=== PATIENT | female | born 1960 | race Caucasian/White ===

== ENCOUNTER 2017-07-25 09:47 | Emergency (ER) | payer OTHER ==
[2017-07-25] MEDS ORDERED: Sodium Chloride 0.9% 10 ML Syringe FLUSH PRN (10:12)
[2017-07-25] MEDS ORDERED: Sodium Chloride 0.9% 1,000 ML IV SCH (10:15)
--- NOTE | 2017-07-25 10:21 | EDM.PDOC ---
ED HPI GENERAL MEDICAL PROBLEM - General Chief Complaint: Cardiovascular Problem Stated Complaint: fast pulse Time Seen by Provider: 07/25/17 09:50 Source of Information: Reports: Patient, Family History Limitations: Reports: No Limitations - History of Present Illness INITIAL COMMENTS - FREE TEXT/NARRATIVE: Patient arrives with complaints of dizziness, fast heart rate, feeling exhausted , sore throat, body aches. She states she started having a sore throat and feeling exhausted last night and did fall asleep early. She describes waking up this AM feeling exhausted wanting to go back to bed. She did awaken, and while making breakfast she began feeling her heart beat rapidly, having some dizziness, shortness of breath, body aches, sore throat, having pressure in her head, behind her eyes, some numbness in her jaw. States she felt her throat was burning but it did not feel like heart burn. She also describes lower back pain that started on Sunday that she said isn't really bothering her currently. Along with her eye pressure she does describe a frontal headache pressure type. No visual changes. She does state she has worn a holter before for similar tachycardia. States she was told she has a sinus arrhythmia. Denies a- fib, svt, a-flutter. She denies prior [place], CVA, cancer, states she has been watching her blood sugar as she is pre-diabetic. Reports a low carb diet change a few weeks ago. Primary provider is Gege Orozco at [facility]. Denies smoking, drug use, rare alcohol use. Blood pressure before leaving home was 147 /110, here it is 141/90. Onset: Today, Sudden Onset Date: 07/25/17 Onset Time: 08:30 Location: Reports: Face, Neck, Chest Quality: Reports: Ache, Pressure Severity: Moderate Associated Symptoms: Reports: Headaches, Shortness of Breath, Weakness - Related Data Allergies Allergy/AdvReac Type Severity Reaction Status Date / Time codeine Allergy Nausea and Verified 10/25/15 10:17 Vomiting Home Meds: Home Meds Escitalopram Oxalate [Lexapro] 20 mg PO DAILY 10/19/15 [History] Hydrochlorothiazide [Hydrochlorothiazide] 1 tab PO DAILY 10/19/15 [History] Ibuprofen 400 mg PO Q6HR PRN 10/19/15 [History] Metoprolol Succinate [Toprol XL] 100 mg PO DAILY 10/19/15 [History] Multivitamin with Minerals [Multiple Vitamin] 1 tab PO DAILY 10/19/15 [History] [place]-3 Fatty Acids [Central-3] 2 cap PO DAILY 10/19/15 [History] SUMAtriptan Succinate [Imitrex] 100 mg PO ASDIRECTED PRN 10/19/15 [History] Scopolamine [Transderm-Scop] 1 patch TRDERM ASDIRECTED 10/19/15 [History] Diclofenac Sodium [Voltaren] 75 mg DAILY 07/25/17 [History] Past Medical History HEENT History: Reports: Impaired Vision Cardiovascular History: Reports: Hypertension, Other (See Below) Other Cardiovascular History: PAC's Gastrointestinal History: Reports: GERD 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: , Other (See Below) Other OB/BYN History: Cystocele Musculoskeletal History: Reports: Arthritis, Other (See Below) Other Musculoskeletal History: Chronic pain syndrome Neurological History: Reports: Migraines Psychiatric History: Reports: Anxiety, Depression - Past Surgical History GI Surgical History: Reports: Cholecystectomy, Other (See Below) Female Surgical History: Reports: Cervical Cryotherapy, Hysterectomy, Other ( See Below) Musculoskeletal Surgical History: Reports: Arthroscopic Knee, Carpal Tunnel Social & Family History - Tobacco Use Smoking Status *Q: Former Smoker Used Tobacco, but Quit: Yes Second Hand Smoke Exposure: No - Recreational Drug Use Recreational Drug Use: No Drug Use in Last 12 Months: No ED ROS GENERAL - Review of Systems Review Of Systems: ROS reveals no pertinent complaints other than HPI. ED EXAM, GENERAL - Physical Exam Exam: See Below Exam Limited By: No Limitations General Appearance: Alert, WD/WN, Mild Distress Eye Exam: Bilateral Eye: EOMI, PERRL Ears: Normal TMs Nose: Normal Inspection Throat/Mouth: Normal Inspection, Normal Lips, Normal Teeth, Normal Oropharynx, No Airway Compromise Head: Atraumatic, Normocephalic Neck: Normal Inspection, Supple, Non-Tender, Full Range of Motion. No: Lymphadenopathy (L), Lymphadenopathy (R) Respiratory/Chest: No Respiratory Distress, Lungs Clear, Normal Breath Sounds, No Accessory Muscle Use, Chest Non-Tender Cardiovascular: Normal Peripheral Pulses, Regular Rate, Rhythm, No Edema GI/Abdominal: Normal Bowel Sounds, Soft, Non-Tender Back Exam: Normal Inspection Extremities: Normal Inspection, Normal Range of Motion, Non-Tender, Normal Capillary Refill Neurological: Alert, Oriented, CN II-XII Intact, Normal Cognition, Normal Gait, Normal Reflexes Psychiatric: Normal Affect, Normal Mood Skin Exam: Warm, Dry, Intact, Normal Color, No Rash Lymphatic: No Adenopathy Course - Vital Signs Last Recorded V/S: Last Vital Signs Temp 36.6 C 07/25/17 09:47 Pulse 89 07/25/17 09:47 Resp 20 07/25/17 09:47 BP 141/91 H 07/25/17 09:47 Pulse Ox 97 07/25/17 09:47 - Orders/Labs/Meds Orders: Active Orders 24 hr Category Date Time Status EKG Documentation Completion [RC] ROUTINE Care 07/25/17 10:12 Ordered Head wo Cont [CT] Stat Exams 07/25/17 10:13 Taken CULTURE STREP A CONFIRMATION [] Stat Lab 07/25/17 10:23 Results STREP SCRN A RAPID W CULT CONF [] Stat Lab 07/25/17 10:23 Results Saline Lock Insert [OM.PC] Routine Oth 07/25/17 10:12 Ordered Labs: Laboratory Tests 07/25/17 07/25/17 07/25/17 Range/Units 10:23 10:29 10:29 WBC 7.5 (4.0-10.0) x10^3/uL RBC 4.28 (4.00-5.50) x10^6/uL Hgb 14.2 (12.0-16.0) g/dL Hct 41.4 (33.0-47.0) % MCV 96.7 H (78.0-93.0) fL MCH 33.2 H (26.0-32.0) pg MCHC 34.3 (32.0-36.0) g/dL RDW Coeff of Patience 12.3 (10.0-15.0) % Plt Count 210 (130-400) x10^3/uL Neut % (Auto) 69.5 (50.0-80.0) % Lymph % (Auto) 19.7 L (25.0-50.0) % [place] % (Auto) 7.6 (2.0-11.0) % Eos % (Auto) 2.8 (0.0-4.0) % Baso % (Auto) 0.4 (0.2-1.2) % Sodium 143 (136-145) mmol/L Potassium 3.2 L (3.5-5.1) mmol/L Chloride 104 (98-107) mmol/L Carbon Dioxide 32 (21-32) mmol/L BUN 14 (7-18) mg/dL Creatinine 0.9 (0.55-1.02) mg/dL Est Cr Clr Drug Dosing 63.55 mL/min Estimated GFR (MDRD) > 60 Glucose 98 (74-106) mg/dL Calcium 9.3 (8.5-10.1) mg/dL Corrected Calcium 9.86 (8.5-10.1) mg/dL Magnesium 1.8 (1.8-2.4) mg/dL Total Bilirubin 0.6 (0.2-1.0) mg/dL AST 32 (15-37) U/L ALT 55 (14-59) U/L Alkaline Phosphatase 88 (46-116) U/L Creatine Kinase 85 (26-192) U/L Creatine Kinase Index 1.4 (0.0-4.0) % CK-MB (CK-2) 1.2 (0.0-3.6) ng/mL POC Troponin I (0.00-0.08) ng/mL C-Reactive Protein 0.8 (<=0.9) mg/dL NT-Pro-B Natriuret Pep 91 (<=125) pg/mL Total Protein 6.7 (6.4-8.2) g/dL Albumin 3.3 L (3.4-5.0) g/dL Globulin 3.4 Albumin/Globulin Ratio 0.97 TSH, Ultra Sensitive 0.967 (0.358-3.74) uIU/mL Urine Color Yellow (YELLOW) Urine Appearance Slightly cloudy H (CLEAR) Urine pH 6.0 (5.0-8.0) Ur Specific [place] 1.015 Urine Protein Negative (NEGATIVE) mg/dL Urine Glucose (UA) Negative (NEGATIVE) mg/dL Urine Ketones Negative (NEGATIVE) mg/dL Urine Occult Blood Trace-intact H (NEGATIVE) Urine Nitrite Negative (NEGATIVE) Urine Bilirubin Negative (NEGATIVE) Urine Urobilinogen 0.2 (0.2) EU/dL Ur Leukocyte Esterase Large H (NEGATIVE) Urine RBC 5-10 H (NOT SEEN) /HPF Urine WBC 30-40 H (NOT SEEN) /HPF Ur Squamous Epith Cells Many H (NEGATIVE) /HPF Urine Bacteria Moderate H (NEGATIVE) /HPF Urine Mucus Few H (NEGATIVE) /LPF 07/25/17 Range/Units 10:36 WBC (4.0-10.0) x10^3/uL RBC (4.00-5.50) x10^6/uL Hgb (12.0-16.0) g/dL Hct (33.0-47.0) % MCV (78.0-93.0) fL MCH (26.0-32.0) pg MCHC (32.0-36.0) g/dL RDW Coeff of Patience (10.0-15.0) % Plt Count (130-400) x10^3/uL Neut % (Auto) (50.0-80.0) % Lymph % (Auto) (25.0-50.0) % [place] % (Auto) (2.0-11.0) % Eos % (Auto) (0.0-4.0) % Baso % (Auto) (0.2-1.2) % Sodium (136-145) mmol/L Potassium (3.5-5.1) mmol/L Chloride (98-107) mmol/L Carbon Dioxide (21-32) mmol/L BUN (7-18) mg/dL Creatinine (0.55-1.02) mg/dL Est Cr Clr Drug Dosing mL/min Estimated GFR (MDRD) Glucose (74-106) mg/dL Calcium (8.5-10.1) mg/dL Corrected Calcium (8.5-10.1) mg/dL Magnesium (1.8-2.4) mg/dL Total Bilirubin (0.2-1.0) mg/dL AST (15-37) U/L ALT (14-59) U/L Alkaline Phosphatase (46-116) U/L Creatine Kinase (26-192) U/L Creatine Kinase Index (0.0-4.0) % CK-MB (CK-2) (0.0-3.6) ng/mL POC Troponin I 0.00 (0.00-0.08) ng/mL C-Reactive Protein (<=0.9) mg/dL NT-Pro-B Natriuret Pep (<=125) pg/mL Total Protein (6.4-8.2) g/dL Albumin (3.4-5.0) g/dL Globulin Albumin/Globulin Ratio TSH, Ultra Sensitive (0.358-3.74) uIU/mL Urine Color (YELLOW) Urine Appearance (CLEAR) Urine pH (5.0-8.0) Ur Specific [place] Urine Protein (NEGATIVE) mg/dL Urine Glucose (UA) (NEGATIVE) mg/dL Urine Ketones (NEGATIVE) mg/dL Urine Occult Blood (NEGATIVE) Urine Nitrite (NEGATIVE) Urine Bilirubin (NEGATIVE) Urine Urobilinogen (0.2) EU/dL Ur Leukocyte Esterase (NEGATIVE) Urine RBC (NOT SEEN) /HPF Urine WBC (NOT SEEN) /HPF Ur Squamous Epith Cells (NEGATIVE) /HPF Urine Bacteria (NEGATIVE) /HPF Urine Mucus (NEGATIVE) /LPF Meds: Medications Discontinued Medications Generic Name Dose Route Start Last Admin Trade Name Freq PRN Reason Stop Dose Admin Sodium Chloride 1,000 mls @ 999 mls/hr 07/25/17 10:15 07/25/17 10:15 Normal Saline IV 999 mls/hr ASDIRECTED JOSÉ Administration Potassium Chloride 40 meq 07/25/17 11:14 07/25/17 11:40 Klor-Con M20 PO 07/25/17 11:15 40 meq ONETIME ONE Administration Sodium Chloride 10 ml 07/25/17 10:12 Saline Flush FLUSH ASDIRECTED PRN Keep Vein Open - Re-Assessments/Exams Free Text/Narrative Re-Assessment/Exam: 07/25/17 11:[address], rapid strep, and influenza all negative. Troponin, ekg negative. Potassium is slightly low at 3.2, urine does show a likely pyelonephritis with blood, leukocytes, mucous, wbc's observed. 07/25/17 11:29 Departure - Departure Time of Disposition: 12:10 Disposition: Home, Self-Care 01 Condition: Good Clinical Impression: Pyelonephritis, Hypokalemia Instructions: Pyelonephritis, Adult, [id number], Hypokalemia Referrals: Gege Orozco DO [Primary Care Provider] - Forms: ED Department Discharge Additional Instructions: Follow up with your primary provider as symptoms warrant. Stay well hydrated. Take the full course of antibiotics even if feeling better. This will make sure to eliminate the infection and reduce antibiotic resistance. Cipro 500 mg PO BID x 7 days Your potassium was slightly low today. I would also visit with your primary doctor as to possible reasons for this. Please contact us if you have any questions or concerns. Thank you for choosing [facility]. - Problem List & Annotations (1) Hypokalemia SNOMED Code(s): 18503565 Code(s): E87.6 - HYPOKALEMIA Status: Acute Priority: Low (2) Pyelonephritis SNOMED Code(s): 60544734 Code(s): N12 - TUBULO-INTERSTITIAL NEPHRITIS, NOT SPCF ACUTE OR CHRONIC Status: Acute Priority: Medium - Problem List Review Problem List Initiated/Reviewed/Updated: Yes - My Orders Last 24 Hours: My Active Orders 07/25/17 10:12 EKG Documentation Completion [RC] ROUTINE Saline Lock Insert [OM.PC] Routine 07/25/17 10:13 Head wo Cont [CT] Stat 07/25/17 10:23 CULTURE STREP A CONFIRMATION [RM] Stat STREP SCRN A RAPID W CULT CONF [RM] Stat - Assessment/Plan Last 24 Hours: My Active Orders 07/25/17 10:12 EKG Documentation Completion [RC] ROUTINE Saline Lock Insert [OM.PC] Routine 07/25/17 10:13 Head wo Cont [CT] Stat 07/25/17 10:23 CULTURE STREP A CONFIRMATION [RM] Stat STREP SCRN A RAPID W CULT CONF [RM] Stat Assessment:: Pyelonephritis Hypokalemia Plan: Follow up with your primary provider as symptoms warrant. Stay well hydrated. Take the full course of antibiotics even if feeling better. This will make sure to eliminate the infection and reduce antibiotic resistance. Your potassium was slightly low today. I would also visit with your primary doctor as to possible reasons for this. Please contact us if you have any questions or concerns. Thank you for choosing [facility] [employer].
[2017-07-25 10:53] VITALS: BP 141/91
[2017-07-25 11:08] LABS: CHLORIDE,CL 104 mmol/L (98-107); SODIUM,NA 143 mmol/L (136-145)
[2017-07-25] MEDS ORDERED: Potassium Chloride 20 MEQ Tab.ER PO ONE (11:14)
== END 2017-07-25 12:10 | disposition home or self-care (01) ==
LOC: VM.ED 09:47
DX: N12 Tubulo-interstitial nephritis, not specified as acute or chronic (principal); E87.6 Hypokalemia; I10 Essential (primary) hypertension; F41.9 Anxiety disorder, unspecified; F32.9 Major depressive disorder, single episode, unspecified; G43.909 Migraine, unspecified, not intractable, without status migrainosus; Z87.891 Personal history of nicotine dependence; Z88.5 Allergy status to narcotic agent; Z90.49 Acquired absence of other specified parts of digestive tract; Z79.899 Other long term (current) drug therapy
CPT/HCPCS: 36415; 70450; 80053; 81001; 82550; 82553; 83735; 83880; 84443; 84484; 85025; 86140; 87081; 87804; 87880; 93005; 96360; 96361; 99285; A9270; J7030

== ENCOUNTER 2018-06-01 12:46 | Emergency (ER) | payer OTHER ==
[2018-06-01 13:06] VITALS: BP 140/90
[2018-06-01] MEDS ORDERED: Sodium Chloride 0.9% 10 ML Syringe FLUSH PRN (13:31)
[2018-06-01] MEDS: Sodium Chloride 0.9% 1,000 ML IV ONE (13:47)
[2018-06-01] MEDS: Ondansetron 4 MG/2 ML SDV IVPUSH ONE (13:48)
[2018-06-01 13:58] LABS: CHLORIDE,CL 103 mmol/L (98-107); SODIUM,NA 141 mmol/L (136-145)
[2018-06-01 14:04] LABS: ANION GAP 11.2 mmol/L (10-20)
--- NOTE | 2018-06-01 14:40 | EDM.PDOC ---
ED HPI GENERAL MEDICAL PROBLEM - General Chief Complaint: General Stated Complaint: DIZZINESS Time Seen by Provider: 06/01/18 12:47 Source of Information: Reports: Patient, Family, RN, RN Notes Reviewed History Limitations: Reports: No Limitations - History of Present Illness INITIAL COMMENTS - FREE TEXT/NARRATIVE: Patient presents to the ED at [facility] with complains of nausea, headache , back pain, generally not feeling well. Symptoms started a couple days ago. No recent back injury or trauma. Back pain is chronic. Has not taken any medications at home. No recent exposures. No close family members or contacts with similar symptoms. Onset: Unknown/Unsure Lower Back Pain Score (Numeric/FACES): 5 - Related Data Allergies Allergy/AdvReac Type Severity Reaction Status Date / Time codeine Allergy Nausea and Verified 06/01/18 13:08 Vomiting Home Meds: Home Meds Escitalopram Oxalate [Lexapro] 20 mg PO DAILY 10/19/15 [History] Hydrochlorothiazide 1 tab PO DAILY 10/19/15 [History] Ibuprofen 400 mg PO Q6HR PRN 10/19/15 [History] Metoprolol Succinate [Toprol XL] 100 mg PO DAILY 10/19/15 [History] Multivitamin with Minerals [Multiple Vitamin] 1 tab PO DAILY 10/19/15 [History] [place]-3 Fatty Acids [[place]-3] 2 cap PO DAILY 10/19/15 [History] SUMAtriptan Succinate [Imitrex] 100 mg PO ASDIRECTED PRN 10/19/15 [History] Scopolamine [Transderm-Scop] 1 patch TRDERM ASDIRECTED 10/19/15 [History] Diclofenac Sodium [Voltaren] 75 mg DAILY 07/25/17 [History] Estradiol [Estring] 1 each VG Q3M 06/01/18 [History] Nitrofurantoin Macrocrystal [Macrodantin] 100 mg PO BID 5 Days #10 capsule 06/01 [Rx] Past Medical History HEENT History: Reports: Impaired Vision Cardiovascular History: Reports: Hypertension, Other (See Below) Other Cardiovascular History: PAC's Gastrointestinal History: Reports: GERD 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: , 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 REPAIRER History: Cystocele Musculoskeletal History: Reports: Arthritis, Other (See Below) Other Musculoskeletal History: Chronic pain syndrome Neurological History: Reports: Migraines Psychiatric History: Reports: Anxiety, Depression - Past Surgical History GI Surgical History: Reports: Cholecystectomy, Other (See Below) Female Surgical History: Reports: Cervical Cryotherapy, Hysterectomy, Other ( See Below) Musculoskeletal Surgical History: Reports: Arthroscopic Knee, Carpal Tunnel Dermatological Surgical History: Reports: None Social & Family History - Tobacco Use Smoking Status *Q: Unknown Ever Smoked ED ROS GENERAL - Review of Systems Review Of Systems: See Below Constitutional: Reports: Chills, Weakness. Denies: Fever HEENT: Reports: No Symptoms Respiratory: Denies: Shortness of Breath, Cough Cardiovascular: Denies: Chest Pain, Palpitations GI/Abdominal: Reports: Abdominal Pain, Nausea. Denies: Diarrhea, Vomiting Musculoskeletal: Reports: Back Pain (lower bilateral) Skin: Reports: No Symptoms Neurological: Reports: Headache ED EXAM, GENERAL - Physical Exam Exam: See Below Exam Limited By: No Limitations General Appearance: Alert, No Apparent Distress Eye Exam: Bilateral Eye: EOMI, Normal Inspection, PERRL Ears: Normal External Exam, Normal Canal, Normal TMs Ear Exam: Bilateral Ear: TM normal Throat/Mouth: Normal Inspection, Normal Oropharynx Neck: Supple Respiratory/Chest: No Respiratory Distress, Lungs Clear, Normal Breath Sounds Cardiovascular: Normal Peripheral Pulses, Regular Rate, Rhythm Peripheral Pulses: 2+: Radial (L), Radial (R) GI/Abdominal: Soft, Non-Tender, Abnormal Bowel Sounds (hypoactive) Back Exam: Normal Inspection, Paraspinal Tenderness Skin Exam: Warm, Dry, Intact, Normal Color Course - Vital Signs Last Recorded V/S: Last Vital Signs Temp 37.1 C 06/01/18 12:55 Pulse 70 06/01/18 12:55 Resp 16 06/01/18 12:55 BP 140/90 06/01/18 12:55 Pulse Ox 97 06/01/18 12:55 - Orders/Labs/Meds Orders: Active Orders 24 hr Category Date Time Status Abdomen Pelvis wo Cont [CT] Stat Exams 06/01/18 13:32 Taken UA W/MICROSCOPIC [URIN] Stat Lab 06/01/18 13:50 Ordered Sodium Chloride 0.9% [Saline Flush] Med 06/01/18 13:31 Active 10 ml FLUSH ASDIRECTED PRN Peripheral IV Insertion Adult [OM.PC] Routine Oth 06/01/18 13:31 Ordered Medication Orders Sodium Chloride (Saline Flush) 10 ml FLUSH ASDIRECTED PRN PRN Reason: Keep Vein Open Labs: Laboratory Tests 06/01/18 06/01/18 06/01/18 Range/Units 13:33 13:33 13:33 WBC 9.3 (4.0-10.0) x10^3/uL RBC 4.69 (4.00-5.50) x10^6/uL Hgb 15.9 D (12.0-16.0) g/dL Hct 45.3 (33.0-47.0) % MCV 96.6 H (78.0-93.0) fL MCH 33.9 H (26.0-32.0) pg MCHC 35.1 (32.0-36.0) g/dL RDW Coeff of Patience 12.9 (10.0-15.0) % Plt Count 264 (130-400) x10^3/uL Neut % (Auto) 67.6 (50.0-80.0) % Lymph % (Auto) 19.8 L (25.0-50.0) % [place] % (Auto) 9.1 (2.0-11.0) % Eos % (Auto) 3.2 (0.0-4.0) % Baso % (Auto) 0.3 (0.2-1.2) % Sodium 141 (136-145) mmol/L Potassium 3.2 L (3.5-5.1) mmol/L Chloride 103 (98-107) mmol/L Carbon Dioxide 30 (21-32) mmol/L Anion Gap 11.2 (10-20) mmol/L BUN 8 (7-18) mg/dL Creatinine 1.0 (0.55-1.02) mg/dL Est Cr Clr Drug Dosing TNP Estimated GFR (MDRD) 57 Glucose 97 (74-106) mg/dL Lactic Acid 1.1 (0.4-2.0) mmol/L Calcium 9.4 (8.5-10.1) mg/dL Corrected Calcium 9.64 (8.5-10.1) mg/dL Total Bilirubin 0.6 (0.2-1.0) mg/dL AST 31 (15-37) U/L ALT 53 (14-59) U/L Alkaline Phosphatase 101 (46-116) U/L C-Reactive Protein 1.3 H (<=0.9) mg/dL Total Protein 7.6 (6.4-8.2) g/dL Albumin 3.7 (3.4-5.0) g/dL Globulin 3.9 Albumin/Globulin Ratio 0.95 Urine Color (YELLOW) Urine Appearance (CLEAR) Urine pH (5.0-8.0) Ur Specific [place] Urine Protein (NEGATIVE) mg/dL Urine Glucose (UA) (NEGATIVE) mg/dL Urine Ketones (NEGATIVE) mg/dL Urine Occult Blood (NEGATIVE) Urine Nitrite (NEGATIVE) Urine Bilirubin (NEGATIVE) Urine Urobilinogen (0.2) EU/dL Ur Leukocyte Esterase (NEGATIVE) Urine RBC (NOT SEEN) /HPF Urine WBC (NOT SEEN) /HPF Ur Epithelial Cells Urine Bacteria (NEGATIVE) /HPF Urine Mucus (NEGATIVE) /LPF 06/01/18 Range/Units 13:50 WBC (4.0-10.0) x10^3/uL RBC (4.00-5.50) x10^6/uL Hgb (12.0-16.0) g/dL Hct (33.0-47.0) % MCV (78.0-93.0) fL MCH (26.0-32.0) pg MCHC (32.0-36.0) g/dL RDW Coeff of Patience (10.0-15.0) % Plt Count (130-400) x10^3/uL Neut % (Auto) (50.0-80.0) % Lymph % (Auto) (25.0-50.0) % [place] % (Auto) (2.0-11.0) % Eos % (Auto) (0.0-4.0) % Baso % (Auto) (0.2-1.2) % Sodium (136-145) mmol/L Potassium (3.5-5.1) mmol/L Chloride (98-107) mmol/L Carbon Dioxide (21-32) mmol/L Anion Gap (10-20) mmol/L BUN (7-18) mg/dL Creatinine (0.55-1.02) mg/dL Est Cr Clr Drug Dosing Estimated GFR (MDRD) Glucose (74-106) mg/dL Lactic Acid (0.4-2.0) mmol/L Calcium (8.5-10.1) mg/dL Corrected Calcium (8.5-10.1) mg/dL Total Bilirubin (0.2-1.0) mg/dL AST (15-37) U/L ALT (14-59) U/L Alkaline Phosphatase (46-116) U/L C-Reactive Protein (<=0.9) mg/dL Total Protein (6.4-8.2) g/dL Albumin (3.4-5.0) g/dL Globulin Albumin/Globulin Ratio Urine Color Yellow (YELLOW) Urine Appearance Slightly cloudy H (CLEAR) Urine pH 6.0 (5.0-8.0) Ur Specific [place] 1.015 Urine Protein Negative (NEGATIVE) mg/dL Urine Glucose (UA) Negative (NEGATIVE) mg/dL Urine Ketones Negative (NEGATIVE) mg/dL Urine Occult Blood Negative (NEGATIVE) Urine Nitrite Negative (NEGATIVE) Urine Bilirubin Negative (NEGATIVE) Urine Urobilinogen 0.2 (0.2) EU/dL Ur Leukocyte Esterase Trace H (NEGATIVE) Urine RBC 0-5 (NOT SEEN) /HPF Urine WBC 5-10 H (NOT SEEN) /HPF Ur Epithelial Cells Many Urine Bacteria Few H (NEGATIVE) /HPF Urine Mucus Few H (NEGATIVE) /LPF Meds: Medications Generic Name Dose Route Start Last Admin Trade Name Freq PRN Reason Stop Dose Admin Sodium Chloride 10 ml 06/01/18 13:31 Saline Flush FLUSH ASDIRECTED PRN Keep Vein Open Discontinued Medications Generic Name Dose Route Start Last Admin Trade Name Freq PRN Reason Stop Dose Admin Sodium Chloride 1,000 mls @ 999 mls/hr 06/01/18 13:32 06/01/18 13:47 Normal Saline IV 06/01/18 14:32 999 mls/hr ONETIME ONE Administration Ondansetron HCl 4 mg 06/01/18 13:32 06/01/18 13:48 Zofran IVPUSH 06/01/18 13:33 4 mg ONETIME ONE Administration Departure - Departure Time of Disposition: 15:05 Disposition: Home, Self-Care 01 Condition: Good Clinical Impression: UTI (urinary tract infection) Qualifiers: Urinary tract infection type: acute cystitis Hematuria presence: with hematuria Qualified Code(s): N30.01 - Acute cystitis with hematuria - Discharge Information *PRESCRIPTION DRUG MONITORING PROGRAM REVIEWED*: Not Applicable *COPY OF PRESCRIPTION DRUG MONITORING REPORT IN PATIENT RANJITH: Not Applicable Prescriptions: Nitrofurantoin Macrocrystal [Macrodantin] 100 mg PO BID 5 Days #10 capsule Instructions: Urinary Tract Infection, Adult Referrals: Gege Orozco DO [Primary Care Provider] - Forms: ED Department Discharge Additional Instructions: - Stay well hydrated and rest - Take medications for the full coarse, even if you are feeling better - May alternate Tylenol/Advil as needed for pain - LOTS of water - Use nausea medication as needed - See your Primary in clinic as symptoms warrant - Problem List Review Problem List Initiated/Reviewed/Updated: Yes - My Orders Last 24 Hours: My Active Orders 06/01/18 13:31 Sodium Chloride 0.9% [Saline Flush] 10 ml FLUSH ASDIRECTED PRN Peripheral IV Insertion Adult [OM.PC] Routine 06/01/18 13:32 Abdomen Pelvis wo Cont [CT] Stat 06/01/18 13:50 UA W/MICROSCOPIC [URIN] Stat - Assessment/Plan Last 24 Hours: My Active Orders 06/01/18 13:31 Sodium Chloride 0.9% [Saline Flush] 10 ml FLUSH ASDIRECTED PRN Peripheral IV Insertion Adult [OM.PC] Routine 06/01/18 13:32 Abdomen Pelvis wo Cont [CT] Stat 06/01/18 13:50 UA W/MICROSCOPIC [URIN] Stat Assessment:: UTI Back Pain Plan: Labs and CT scan thoroughly discussed with patient and family. All questions answered. Patient will be started on abx therapy for UTI. Patient agrees with POC.
[2018-06-01] MEDS: Take Home: Nitrofurantoin Monohydrate/Macrocrystalline 100 MG, 2 Cap Pack PO ONE (15:19)
== END 2018-06-01 15:27 | disposition home or self-care (01) ==
LOC: VM.ED 12:46
DX: N30.01 Acute cystitis with hematuria (principal); I10 Essential (primary) hypertension; F41.9 Anxiety disorder, unspecified; F32.9 Major depressive disorder, single episode, unspecified; Z88.5 Allergy status to narcotic agent; Z90.710 Acquired absence of both cervix and uterus; Z90.49 Acquired absence of other specified parts of digestive tract
CPT/HCPCS: 36415; 74176; 80053; 81001; 83605; 85025; 86140; 96361; 96374; 99284; A9270-GY; J2405; J7030

== ENCOUNTER 2024-06-12 21:41 | Emergency (ER) | payer OTHER ==
[2024-06-12] MEDS ORDERED: Sodium Chloride 0.9% 10 ML Syringe FLUSH PRN (21:48)
[2024-06-12] MEDS: HYDROmorphone 0.5 MG/0.5 ML Syringe IVPUSH ONE (22:00)
[2024-06-12] MEDS: Acetaminophen 500 MG Tab PO ONE (22:00)
[2024-06-12 22:06] LABS: BASOPHILS PERCENT AUTO 0.1 % (0.2-1.2); HEMATOCRIT 40.8 % (33.0-47.0); HEMOGLOBIN 14.3 g/dL (12.0-16.0); IMMATURE GRAN ABSOLUTE AUTO 0.02 x10^3/uL (0.00-0.07); LYMPHOCYTES ABSOLUTE AUTO 0.7 x10^3/uL (1.0-4.8); LYMPHOCYTES PERCENT AUTO 6.4 % (25.0-50.0); MEAN CORPUSCULAR VOLUME 94.2 fL (78.0-93.0); MONOCYTES ABSOLUTE AUTO 0.9 x10^3/uL (0.0-0.8); MONOCYTES PERCENT AUTO 8.9 % (2.0-11.0); NEUTROPHILS ABSOLUTE AUTO 8.9 x10^3/uL (1.8-7.7); NEUTROPHILS PERCENT AUTO 84.4 % (50.0-80.0); PLATELET COUNT,PLT 177 x10^3/uL (130-400); RED BLOOD CELL COUNT 4.33 x10^6/uL (4.00-5.50); WHITE BLOOD CELL COUNT,WBC 10.5 x10^3/uL (4.0-10.0)
[2024-06-12 22:26] LABS: LACTIC ACID 1.4 mmol/L (0.4-2.0); PROTHROMBIN TIME 10.5 SEC (8.9-11.5); PTT,PARTIAL THROMBOPLSTIN TIME 25.6 SEC (21.9-33.8)
[2024-06-12] MEDS: Ondansetron 4 MG/2 ML SDV IVPUSH ONE (22:29)
[2024-06-12 22:42] LABS: A/G RATIO 1.27; ALANINE AMINOTRANSFERASE,ALT 34 U/L (14-59); ALBUMIN 3.8 g/dL (3.4-5.0); ALKALINE PHOSPHATASE 82 U/L (46-116); ASPARTATE AMNIOTRANSFERASE,AST 25 U/L (15-37); BILIRUBIN TOTAL 0.6 mg/dL (0.2-1.0); BLOOD UREA NITROGEN,BUN 11 mg/dL (7-18); C-REACTIVE PROTEIN 3.83 mg/dL (<=0.50); CALCIUM 8.7 mg/dL (8.5-10.1); CARBON DIOXIDE,CO2 29 mmol/L (21-32); CHLORIDE,CL 102 mmol/L (98-107); CREATININE 1.1 mg/dL (0.55-1.02); GLUCOSE RANDOM 159 mg/dL (70-99); MAGNESIUM 1.5 mg/dL (1.8-2.4); POTASSIUM,K 3.4 mmol/L (3.5-5.1); PROTEIN TOTAL,TP 6.8 g/dL (6.4-8.2); SODIUM,NA 141 mmol/L (136-145)
[2024-06-12 22:45] LABS: ANION GAP 13.4 mmol/L (5-15); ESTIMATED GFR 57 mL/min (>=60)
[2024-06-12 22:46] LABS: CORONAVIRUS COVID-19 NAA NEGATIVE (NEGATIVE); INFLUENZA A NAA NEGATIVE (NEGATIVE); INFLUENZA B NAA NEGATIVE (NEGATIVE); RESPIRATORY SYNCYTIAL VIR NAA NEGATIVE (NEGATIVE)
[2024-06-12] MEDS: Iopamidol 755 Mg/ML 100 ML Bottle IVPUSH ONE (23:19)
[2024-06-12] MEDS: cefTRIAXone 1 GM Vial IVPUSH ONE (23:25)
[2024-06-13] MEDS: HYDROmorphone 0.5 MG/0.5 ML Syringe IVPUSH ONE (00:45)
[2024-06-13 01:19] VITALS: PULSE 84
[2024-06-13 01:20] VITALS: BP 125/75
== END 2024-06-13 01:50 | disposition short-term general hospital (02) ==
LOC: VM.ED 21:41
DX: R50.9 Fever, unspecified (principal); I10 Essential (primary) hypertension; Z88.8 Allergy status to other drugs, medicaments and biological substances; Z79.899 Other long term (current) drug therapy; Z90.49 Acquired absence of other specified parts of digestive tract; Z90.710 Acquired absence of both cervix and uterus
CPT/HCPCS: 0241U; 36415; 71045; 71275; 80053; 83605; 83735; 83880; 84484; 85025; 85379; 85610; 85730; 86140; 87040; 93005; 93010; 96374; 96375; 96376; 99284; 99285-25; A9270-GY; J0696; J1170; J2405; Q9967

== ENCOUNTER 2024-06-21 06:20 | Emergency (ER) | payer OTHER ==
[2024-06-21] MEDS ORDERED: Sodium Chloride 0.9% 10 ML Syringe FLUSH PRN (07:00)
[2024-06-21] MEDS: Sodium Chloride 0.9% 1,000 ML IV ONE (07:10)
[2024-06-21 07:26] LABS: HEMATOCRIT 38.9 % (33.0-47.0); HEMOGLOBIN 13.4 g/dL (12.0-16.0); MEAN CORPUSCULAR HEMOGLOBIN 33.1 pg (26.0-32.0); MEAN CORPUSCULAR HGB CONC 34.4 g/dL (32.0-36.0); PLATELET COUNT,PLT 317 x10^3/uL (130-400); RED BLOOD CELL COUNT 4.05 x10^6/uL (4.00-5.50)
[2024-06-21 07:28] LABS: WHITE BLOOD CELL COUNT,WBC 22.6 x10^3/uL (4.0-10.0)
[2024-06-21 07:35] LABS: BAND PERCENT MAN 1 % (0-6); LYMPHOCYTES ABSOLUTE MAN 0.7 x10^3/uL (1.0-4.8); LYMPHOCYTES PERCENT MAN 3 % (25-50); MONOCYTES ABSOLUTE MAN 0.7 x10^3/uL (0.0-0.8); MONOCYTES PERCENT MAN 3 % (2-11); NEUTROPHILS ABSOLUTE MAN 21.2 x10^3/uL (1.8-7.7); PLATELET COUNT ESTIMATE ADEQUATE; SEG NEUTROPHILS PERCENT MAN 93 % (50-80)
[2024-06-21 07:47] LABS: A/G RATIO 0.66; ALANINE AMINOTRANSFERASE,ALT 29 U/L (14-59); ALBUMIN 2.7 g/dL (3.4-5.0); ALKALINE PHOSPHATASE 111 U/L (46-116); ASPARTATE AMNIOTRANSFERASE,AST 19 U/L (15-37); BILIRUBIN TOTAL 0.6 mg/dL (0.2-1.0); BLOOD UREA NITROGEN,BUN 17 mg/dL (7-18); CALCIUM 9.2 mg/dL (8.5-10.1); CARBON DIOXIDE,CO2 29 mmol/L (21-32); CHLORIDE,CL 103 mmol/L (98-107); CREATININE 0.7 mg/dL (0.55-1.02); EST CRCL DRUG DOSING (CG) 74.98 mL/min; GLUCOSE RANDOM 159 mg/dL (70-99); LIPASE 26 U/L (19-71); POTASSIUM,K 3.5 mmol/L (3.5-5.1); PRO B-TYPE NATRIUR PEPT,BNPPRO 890 pg/mL (<=125); PROTEIN TOTAL,TP 6.8 g/dL (6.4-8.2); SODIUM,NA 140 mmol/L (136-145)
[2024-06-21 07:50] LABS: ANION GAP 11.5 mmol/L (5-15); ESTIMATED GFR 98 mL/min (>=60)
[2024-06-21] MEDS: Iopamidol 612 MG/ML 100 ML Bottle IVPUSH ONE (07:57)
[2024-06-21] MEDS: Morphine 2 MG/ML SYRINGE IVPUSH ONE (08:15)
[2024-06-21] MEDS: Ketorolac 15 MG/ML SDV IVPUSH ONE (08:16)
[2024-06-21 10:30] VITALS: BP 150/83; PULSE 80
== END 2024-06-21 10:20 | disposition home or self-care (01) ==
LOC: VM.ED 06:20
DX: D72.829 Elevated white blood cell count, unspecified (principal); J90 Pleural effusion, not elsewhere classified; R91.1 Solitary pulmonary nodule; M79.601 Pain in right arm; I10 Essential (primary) hypertension; K21.9 Gastro-esophageal reflux disease without esophagitis; Z90.710 Acquired absence of both cervix and uterus; Z88.5 Allergy status to narcotic agent; Z79.899 Other long term (current) drug therapy
CPT/HCPCS: 71260; 74177; 80053; 83605; 83690; 83880; 84484; 85025; 93005; 96361; 96374; 96375; 99285; J1885; J2270; J7030; Q9967; 93010; 99284

== ENCOUNTER 2025-08-27 11:20 | Day surgery (SDC) | payer OTHER ==
[~2025-08-27 11:20] MED LIST: Propofol 200 MG/20 ML SDV ONE; fentaNYL 100 MCG/2 ML SDV ONE
[2025-08-27] MEDS: Lactated Ringers 1,000 ML IV SCH (11:35)
[2025-08-27 14:31] VITALS: BP 149/81; PULSE 84
== END 2025-08-27 14:45 | disposition home or self-care (01) ==
LOC: VM.SDS 11:20
PROVIDERS: ATTEND Family Medicine
DX: K20.90 Esophagitis, unspecified without bleeding (principal); K22.5 Diverticulum of esophagus, acquired; I10 Essential (primary) hypertension; E66.3 Overweight; Z79.899 Other long term (current) drug therapy; Z87.891 Personal history of nicotine dependence
CPT/HCPCS: 00731; 43239; J2704; J3010; J7120